=== PATIENT | female | born 1975 | race American Indian/Alaskan Native ===

== ENCOUNTER 2017-07-30 06:46 | Inpatient (IN) | payer OTHER ==
--- NOTE | 2017-07-30 07:13 | Cat Scan Report ---
FINAL REPORT EXAM: CT HEAD/BRAIN WO CON HISTORY: neuro deficits < 6hrs or sx present upon awakening TECHNIQUE: CT imaging acquired through the head without intravenous contrast. Transaxial reformations are provided. PRIORS: None. FINDINGS: The ventricles, cisterns and sulci are normal. No intraparenchymal or extra-axial mass, hemorrhage, or mass effect. [place]z and white-matter differentiation is normal. Normal spherical shape of the globes. Visualized portions of the paranasal sinuses and mastoid air cells are clear. No skull or facial fracture visualized. IMPRESSION: No acute intracranial abnormality. Findings were conveyed to Dr. Fish at 0607 central Time on 07/30/2017 immediately following the examination.
[2017-07-30 07:21] LABS: Basophils % (Auto) 0.2 % (0.0-1.8); Eosinophils % (Auto) 0.1 % (0.0-4.3); Hematocrit 40.5 % (30.3-42.9); Hemoglobin 13.6 gm/dl (10.1-14.3); Lymphocytes # (Auto) 1.2 K/mm3 (1.2-5.4); Lymphocytes % (Auto) 8.9 % (13.4-35.0); Mean Corpuscular HGB Conc 34 % (30-34); Mean Corpuscular Hemoglobin 33 pg (28-32); Mean Corpuscular Volume 98 fl (79-97); Monocytes # (Auto) 0.5 K/mm3 (0.0-0.8); Monocytes % (Auto) 3.7 % (0.0-7.3); Platelet Count 251 K/mm3 (140-440); Red Blood Count 4.13 M/mm3 (3.65-5.03); Red Cell Distribution Width 14.3 % (13.2-15.2)
[2017-07-30] MEDS ORDERED: ZOFRAN IV ONE (07:22)
[2017-07-30] MEDS ORDERED: NORMODYNE IV ONE (07:24)
[2017-07-30] MEDS ORDERED: SUBLIMAZE IV ONE (07:24)
[2017-07-30 07:26] LABS: INR 0.98 (0.87-1.13)
[2017-07-30] MEDS ORDERED: NACL ONE (07:26)
[2017-07-30 07:30] LABS: BUN/Creatinine Ratio 20; Blood Urea Nitrogen 10 mg/dL (7-17); Calcium 8.8 mg/dL (8.4-10.2); Hemolysis Index 7; Partial Thromboplastin Time 29.4 Sec. (24.2-36.6)
--- NOTE | 2017-07-30 07:31 | Emergency Department Report ---
ED Neuro Deficit HPI - General Chief Complaint: Neuro Symptoms/Deficit Stated Complaint: POSSIBLE STROKE Time Seen by Provider: 07/30/17 07:08 Source: patient, RN notes reviewed Mode of arrival: Wheelchair Limitations: Physical Limitation - History of Present Illness Initial Comments: This is a 42-year-old female who was previously unknown to this provider, denies chronic medical conditions. She is brought to the hospital as a possible code stroke. As per her , patient went to bed at 12:00 this evening, and "was fine." At 3:00 in the morning, patient developed epigastric discomfort, nausea and vomiting. Shortly thereafter, at 4:00 AM, aspirin the patient, patient developed slurred speech, right upper extremity weakness. She presented to the ER as a code stroke. Patient also complains of throbbing right-sided headache. -: Gradual Location: speech, right arm Presenting Symptoms: Present: Weak/Paralyzed One Side, Unable to Speak Clearly History of same: No Place: home Severity: moderate Quality: weak, numb, tingling Improves With: none Worsens With: none On Anticoagulants: No Context: gradual onset Associated Symptoms: headaches, loss of appetite, malise, nausea/vomiting, weakness. denies: confusion, chest pain, cough, diaphoresis, fever/chills, shortness of breath, syncope - Related Data Allergies/Adverse Reactions: Allergies Allergy/AdvReac Type Severity Reaction Status Date / Time No Known Allergies Allergy Unverified 07/30/17 06:51 ED Review of Systems ROS: Stated complaint: POSSIBLE STROKE Other details as noted in HPI ED Past Medical Hx - Past Medical History Previous Medical History?: Yes Hx Hypertension: Yes - Social History Smoking Status: Never Smoker ED Neuro Physical Exam - General Limitations: No Limitations General appearance: alert, in no apparent distress Suspected Stroke: Yes - Head Head exam: Present: atraumatic, normocephalic - Eye Eye exam: Present: normal appearance, PERRL, EOMI. Absent: nystagmus - ENT ENT exam: Present: mucous membranes moist - Neck Neck exam: Present: normal inspection, full ROM. Absent: tenderness, meningismus - Respiratory Respiratory exam: Present: normal lung sounds bilaterally. Absent: respiratory distress - Cardiovascular Cardiovascular Exam: Present: regular rate, normal rhythm, normal heart sounds. Absent: bradycardia, tachycardia, irregular rhythm, systolic murmur, diastolic murmur, rubs, gallop - GI/Abdominal GI/Abdominal exam: Present: soft, normal bowel sounds. Absent: distended, tenderness, guarding, rebound, rigid, pulsatile mass - Extremities Exam Extremities exam: Present: normal inspection, full ROM. Absent: pedal edema, joint swelling - Back Exam Back exam: Present: normal inspection, full ROM. Absent: paraspinal tenderness , vertebral tenderness - Neurological Exam Neurological exam: Present: alert, oriented X3, CN II-XII intact - NIHSS Assessment Interval: Baseline 1a. Level of Consciousness: alert 1b. LOC Questions: answers correctly 1c. LOC Commands: performs tasks correctly 2. Best Gaze: normal 3. Visual: no visual loss 4. Facial Palsy: normal symmetrical movement 5b. Motor Arm Right: some gravity effort 5a. Motor Arm Left: no drift 6a. Motor Leg Left: no drift 6b. Motor Leg Right: some gravity effort 7. Limb Ataxia: absent 8. Sensory: normal 9. Best Language: no aphasia 10. Dysarthria: normal 11. Extinction/Inattention: no abnormality Total Score: 4 Stroke Severity: Minor Stroke - Psychiatric Psychiatric exam: Present: anxious - Skin Skin exam: Present: warm, dry, intact, normal color. Absent: rash ED Course Vital Signs 07/30/17 07/30/17 06:51 08:26 Temperature 98.7 F Pulse Rate 88 Respiratory 16 Rate Blood Pressure 177/106 O2 Sat by Pulse 95 Oximetry - Lab Data Result diagrams: 07/30/17 07:08 07/30/17 07:08 Lab Results 07/30/17 07/30/17 07/30/17 Range/Units 06:54 07:08 07:08 WBC 13.2 H (4.5-11.0) K/mm3 RBC 4.13 (3.65-5.03) M/mm3 Hgb 13.6 (10.1-14.3) gm/dl Hct 40.5 (30.3-42.9) % MCV 98 H (79-97) fl MCH 33 H (28-32) pg MCHC 34 (30-34) % RDW 14.3 (13.2-15.2) % Plt Count 251 (140-440) K/mm3 Lymph % (Auto) 8.9 L (13.4-35.0) % [place] % (Auto) 3.7 (0.0-7.3) % Eos % (Auto) 0.1 (0.0-4.3) % Baso % (Auto) 0.2 (0.0-1.8) % Lymph # 1.2 (1.2-5.4) K/mm3 [place] # 0.5 (0.0-0.8) K/mm3 Eos # 0.0 (0.0-0.4) K/mm3 Baso # 0.0 (0.0-0.1) K/mm3 Seg Neutrophils % 87.1 H (40.0-70.0) % Seg Neutrophils # 11.5 H (1.8-7.7) K/mm3 PT 13.5 (12.2-14.9) Sec. INR 0.98 (0.87-1.13) APTT 29.4 (24.2-36.6) Sec. Thrombin Time (15.1-19.6) Sec. Sodium (137-145) mmol/L Potassium (3.6-5.0) mmol/L Chloride (98-107) mmol/L Carbon Dioxide (22-30) mmol/L Anion Gap mmol/L BUN (7-17) mg/dL Creatinine (0.7-1.2) mg/dL Estimated GFR ml/min BUN/Creatinine Ratio % Glucose (65-100) mg/dL POC Glucose 96 (70-105) Calcium (8.4-10.2) mg/dL Troponin T (0.00-0.029) ng/mL 07/30/17 07/30/17 Range/Units 07:08 07:08 WBC (4.5-11.0) K/mm3 RBC (3.65-5.03) M/mm3 Hgb (10.1-14.3) gm/dl Hct (30.3-42.9) % MCV (79-97) fl MCH (28-32) pg MCHC (30-34) % RDW (13.2-15.2) % Plt Count (140-440) K/mm3 Lymph % (Auto) (13.4-35.0) % [place] % (Auto) (0.0-7.3) % Eos % (Auto) (0.0-4.3) % Baso % (Auto) (0.0-1.8) % Lymph # (1.2-5.4) K/mm3 [place] # (0.0-0.8) K/mm3 Eos # (0.0-0.4) K/mm3 Baso # (0.0-0.1) K/mm3 Seg Neutrophils % (40.0-70.0) % Seg Neutrophils # (1.8-7.7) K/mm3 PT (12.2-14.9) Sec. INR (0.87-1.13) APTT (24.2-36.6) Sec. Thrombin Time 15.2 (15.1-19.6) Sec. Sodium 140 (137-145) mmol/L Potassium 4.0 (3.6-5.0) mmol/L Chloride 99.9 (98-107) mmol/L Carbon Dioxide 27 (22-30) mmol/L Anion Gap 17 mmol/L BUN 10 (7-17) mg/dL Creatinine 0.5 L (0.7-1.2) mg/dL Estimated GFR > 60 ml/min BUN/Creatinine Ratio 20 % Glucose 102 H (65-100) mg/dL POC Glucose (70-105) Calcium 8.8 (8.4-10.2) mg/dL Troponin T < 0.010 (0.00-0.029) ng/mL - EKG Data -: EKG Interpreted by Ms EKG shows normal: sinus rhythm Rate: normal When compared to previous EKG there are: previous EKG unavailable - Radiology Data Radiology results: report reviewed, image reviewed CT scan of the abdomen and pelvis negative for acute disease. CT scan of the brain negative for acute disease. CT scan of the head and neck, angiography, negative for acute disease. X-ray the chest is negative for acute disease - Medical Decision Making Differential diagnosis, including but not limited to: Stroke, transient ischemic attack, conversion disorder, seizure, dissection Assessment and plan: 42-year-old female who presented with abdominal pain, and complaint of right arm weakness that started at 4:00 in the morning. Initially he had an NIH score of 4, however symptoms rapidly improved. X-ray of the chest grossly unremarkable, equal pulses in the bilateral upper and lower extremities, noncontrast CT scan of the abdomen and pelvis negative for acute findings. Think aortic dissection unlikely for aforementioned reasons. CT angiogram of the head and neck negative for significant findings, there is specifically no thrombus or dissection noted, patient also interviewed by stroke neurologist, Dr. Audrey Young; given improvement in symptoms, we both agree that the patient is not a TPA candidate at this time, this was discussed extensively with the patient and her family, who verbalize understanding and agreement with this. Patient will be admitted to the hospital for evaluation for transient ischemic attack high risk symptoms, case presented to the Hospital physician, Dr. Low; he accepted the patient to the medical service. - Thrombolytic Inclusion/Exclusion Thrombolytic Contraindications: Rapidily Improving s/s Critical care attestation.: If time is entered above; I have spent that time in minutes in the direct care of this critically ill patient, excluding procedure time. ED Disposition Clinical Impression: TIA (transient ischemic attack), Abdominal pain Disposition: DC-09 OP ADMIT IP TO THIS HOSP Is pt being admited?: Yes Does the pt Need Aspirin: Yes Condition: Stable
[2017-07-30] MEDS ORDERED: NACL 0.9% IV ONE (07:40)
[2017-07-30] MEDS ORDERED: ACTIVASE IV ONE ×2 (07:40)
[2017-07-30] MEDS ORDERED: ACTIVASE ONE (07:43)
--- NOTE | 2017-07-30 08:17 | Cat Scan Report ---
FINAL REPORT EXAM: CT ABDOMEN PELVIS WO CON HISTORY: abd pain TECHNIQUE: CT images obtained through the Abdomen and Pelvis without contrast. Transaxial,coronal and sagittal reformats are provided. PRIORS: None. FINDINGS: Imaged intrathoracic contents are unremarkable. Kidneys are normal in size, axis and position. No hydronephrosis or nephrolithiasis. The ureters are normal in course and caliber. No stones are seen within the urinary bladder. Cholecystectomy. The liver, pancreas, spleen, and adrenal glands demonstrate a normal noncontrast appearance. Hollow enteric organs are normal in course and caliber. Appendix is normal. No intra-abdominal free air/fluid or lymphadenopathy. Aorta is normal in course and caliber. Prior hysterectomy. Multiple pelvic phleboliths. Superficial soft tissues are unremarkable. No acute or aggressive appearing skeletal findings. IMPRESSION: No CT evidence of obstructive urolithiasis or other acute abdominal or pelvic findings.
--- NOTE | 2017-07-30 08:31 | Cat Scan Report ---
FINAL REPORT EXAM: CT ANGIO HEAD HISTORY: cva TECHNIQUE: CT images are acquired through the head in angiographic phase following intravenous administration of contrast. Transaxial , coronal and sagittal reformations with maximal intensity projections are provided. PRIORS: Noncontrast head CT of the same date FINDINGS: The anterior and posterior communicating arteries are normal in caliber. Well opacified anterior and middle cerebral arteries. Branch vessels within the anterior and middle cerebral arterial distribution are well opacified and normal in caliber. Normal caliber basilar artery. Posterior cerebral arteries and their major branches are well opacified and normal in caliber. IMPRESSION: No intracranial significant stenosis/large vessel occlusion. The [place] is intact.
--- NOTE | 2017-07-30 08:35 | Cat Scan Report ---
FINAL REPORT EXAM: CT ANGIO NECK HISTORY: cva TECHNIQUE: CT images are acquired through the neck in angiographic phase following intravenous administration of contrast. Transaxial , coronal and sagittal reformations with maximal intensity projections are provided. PRIORS: CT head angiogram of the same date FINDINGS: Normal 3 vessel aortic arch. The right common and internal carotid arteries are well opacified and normal in course and caliber. The left common and internal carotid arteries are well opacified and normal in course and caliber. Normal caliber, well opacified basilar artery. Vertebral arteries are well opacified and normal in caliber. Posterior cerebral arteries and their major branches are well opacified and normal in caliber. IMPRESSION: No significant stenosis or intraluminal abnormality involving the carotid or vertebral arteries.
--- NOTE | 2017-07-30 09:03 | XRay Report ---
Single view chest: History: Hypertension. Abdominal pain. Findings: Cardiomegaly. Trachea is midline. No consolidation, pneumothorax or pleural effusion. Impression: Cardiomegaly. No acute lung changes.
[2017-07-30] MEDS ORDERED: NORCO 5/325 PO PRN (09:51)
[2017-07-30] MEDS ORDERED: DULCOLAX PR PRN (09:51)
[2017-07-30] MEDS ORDERED: MILK OF MAGNESIA PO PRN (09:51)
[2017-07-30] MEDS ORDERED: SODIUM CHLORIDE FLUSH SYRINGE 10 ML IV PRN (09:51)
[2017-07-30] MEDS ORDERED: ZOFRAN IV PRN (09:51)
[2017-07-30] MEDS ORDERED: REGLAN PO PRN (09:51)
[2017-07-30] MEDS ORDERED: PHENERGAN PR PRN (09:51)
[2017-07-30] MEDS ORDERED: TYLENOL PO PRN (09:51)
[2017-07-30] MEDS ORDERED: BABY ASPIRIN PO ONE (10:03)
[2017-07-30] MEDS: ASPIRIN PO SCH (11:41)
[2017-07-30] MEDS: LOVENOX SUB-Q SCH (11:41)
--- NOTE | 2017-07-30 11:42 | History and Physical Report ---
History of Present Illness Date of examination: 07/30/17 Date of admission: 07/30/17 09:51 Chief complaint: right sided numbness History of present illness: 42-year-old -Armenian female with past medical history significant for hypertension, TIA presented to the emergency department complaining of right- sided arm, face, leg numbness and weakness that persisted for 2-3 hours. Patient had nausea and vomiting headache that started around 3AM and after an hour she started to have the numbness and the weakness. Patient denied chest pain, seizure. Patient had TIA 5 years ago and no work up was done. Patient has hypertension and taking her medications. REVIEW OF SYSTEMS: GENERAL: no weight change, no fatigue, no fever HEAD: no head ache EYES: no blurry vision, no acute visual loss EARS: no hearing loss, no discharge, no earache NOSE: no stuffiness, no sneezing, no discharge MOUTH, THROAT AND NECK: no bleeding gums, no sore throat, no swollen neck CARDIAC: no palpitations, no dyspnea on exertion, no orthopnea, no PND, no edema , no chest pain RESPIRATORY: no shortness of breath, no wheeze, no cough, no sputum, no hemoptysis, no asthma GI: no decreased appetite, no nausea, no vomiting, no dysphagia, no diarrhea, no constipation, no abdominal pain URINARY: no change in frequency, no urgency, no polyuria, no hematuria, no incontinence MUSCULOSKELETAL: no muscle weakness, no pain, no joint stiffness NEUROLOGIC: no loss of sensation/numbness, no tingling, no tremors. HEMATOLOGIC: no anemia, no easy bruising SKIN: no rashes ENDOCRINE: no heat/cold intolerance, no polyuria, no polydipsia, no thyroid problems, no diabetes PSYCHIATRIC: no anxiety, no depression, no suicidal ideations Past History Past Medical History: hypertension Past Surgical History: No surgical history Social history: full code. denies: smoking, alcohol abuse, prescription drug abuse, IV drug use Family history: no significant family history Medications and Allergies Allergies Allergy/AdvReac Type Severity Reaction Status Date / Time No Known Allergies Allergy Unverified 07/30/17 06:51 Active Meds: Active Medications Acetaminophen (Tylenol) 650 mg PO Q4H PRN PRN Reason: Pain, Mild (1-3) Acetaminophen/Hydrocodone Bitart ([place] 5/325) 2 each PO Q6H PRN PRN Reason: Pain, Moderate (4-6) Aspirin (Aspirin) 325 mg PO QDAY CINDY Atorvastatin Calcium (Lipitor) 40 mg PO QHS CINDY Bisacodyl (Dulcolax) 10 mg HI QDAY PRN PRN Reason: Constipation Enoxaparin Sodium (Lovenox) 40 mg SUB-Q QDAY CINDY Magnesium Hydroxide (Milk Of Magnesia) 30 ml PO Q4H PRN PRN Reason: Constipation Metoclopramide HCl (Reglan) 10 mg PO Q6H PRN PRN Reason: Nausea And Vomiting Ondansetron HCl (Zofran) 4 mg IV Q8H PRN PRN Reason: N/V unrelieved by Reglan Promethazine HCl (Phenergan) 25 mg HI Q6H PRN PRN Reason: Nausea And Vomiting Sodium Chloride (Sodium Chloride Flush Syringe 10 Ml) 10 ml IV PRN PRN PRN Reason: LINE FLUSH Exam - Physical Exam Narrative exam: Not in cardiopulmonary distress. The patient is obese. Vital signs as documented. Head exam is unremarkable. No scleral icterus . Neck is without jugular venous distension, thyromegaly, or carotid bruits. Lungs are clear to auscultation. Cardiac exam reveals regular rate and Rhythm. First and second heart sounds normal. No murmurs, rubs or gallops. Abdominal exam reveals normal bowel sounds, no masses, no organomegaly and no aortic enlargement. Extremities are nonedematous and both femoral and pedal pulses are normal. 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 No focal weakness. - Constitutional Vitals: Temp Pulse Resp BP Pulse Ox 98.7 F 83 16 130/71 98 07/30/17 06:51 07/30/17 10:00 07/30/17 10:00 07/30/17 10:00 07/30/17 10:00 Results - Labs CBC & Chem 7: 07/30/17 07:08 07/30/17 07:08 Labs: Laboratory Last Values WBC 13.2 K/mm3 (4.5-11.0) H 07/30/17 07:08 RBC 4.13 M/mm3 (3.65-5.03) 07/30/17 07:08 Hgb 13.6 gm/dl (10.1-14.3) 07/30/17 07:08 Hct 40.5 % (30.3-42.9) 07/30/17 07:08 MCV 98 fl (79-97) H 07/30/17 07:08 MCH 33 pg (28-32) H 07/30/17 07:08 MCHC 34 % (30-34) 07/30/17 07:08 RDW 14.3 % (13.2-15.2) 07/30/17 07:08 Plt Count 251 K/mm3 (140-440) 07/30/17 07:08 Lymph % (Auto) 8.9 % (13.4-35.0) L 07/30/17 07:08 [place] % (Auto) 3.7 % (0.0-7.3) 07/30/17 07:08 Eos % (Auto) 0.1 % (0.0-4.3) 07/30/17 07:08 Baso % (Auto) 0.2 % (0.0-1.8) 07/30/17 07:08 Lymph # 1.2 K/mm3 (1.2-5.4) 07/30/17 07:08 [place] # 0.5 K/mm3 (0.0-0.8) 07/30/17 07:08 Eos # 0.0 K/mm3 (0.0-0.4) 07/30/17 07:08 Baso # 0.0 K/mm3 (0.0-0.1) 07/30/17 07:08 Seg Neutrophils % 87.1 % (40.0-70.0) H 07/30/17 07:08 Seg Neutrophils # 11.5 K/mm3 (1.8-7.7) H 07/30/17 07:08 PT 13.5 Sec. (12.2-14.9) 07/30/17 07:08 INR 0.98 (0.87-1.13) 07/30/17 07:08 APTT 29.4 Sec. (24.2-36.6) 07/30/17 07:08 Thrombin Time 15.2 Sec. (15.1-19.6) 07/30/17 07:08 Sodium 140 mmol/L (137-145) 07/30/17 07:08 Potassium 4.0 mmol/L (3.6-5.0) 07/30/17 07:08 Chloride 99.9 mmol/L (98-107) 07/30/17 07:08 Carbon Dioxide 27 mmol/L (22-30) 07/30/17 07:08 Anion Gap 17 mmol/L 07/30/17 07:08 BUN 10 mg/dL (7-17) 07/30/17 07:08 Creatinine 0.5 mg/dL (0.7-1.2) L 07/30/17 07:08 Estimated GFR > 60 ml/min 07/30/17 07:08 BUN/Creatinine Ratio 20 % 07/30/17 07:08 Glucose 102 mg/dL (65-100) H 07/30/17 07:08 POC Glucose 96 (70-105) 07/30/17 06:54 Calcium 8.8 mg/dL (8.4-10.2) 07/30/17 07:08 Troponin T < 0.010 ng/mL (0.00-0.029) 07/30/17 07:08 - Imaging and Cardiology EKG: image reviewed (NSR) CT Scan - head: report reviewed (No ischemia or hemorrhage) Assessment and Plan Assessment and plan: TIA - CT head is negative - MRI, MRA, ECHO, carotid doppler, lipid panels - Aspirin, statin Hypertension - Will resume medications DVT prophylaxis - Lovenox Disposition - Admit to telemetry floor Advance Directives: Yes VTE prophylaxis?: Chemical Plan of care discussed with patient/family: Yes
--- NOTE | 2017-07-30 16:08 | Magnetic Resonance Report ---
FINAL REPORT PROCEDURE: MR BRAIN WO CON TECHNIQUE: Magnetic resonance imaging of the brain was performed without contrast material. HISTORY: Right-sided numbness. COMPARISON: CT scan of the brain 07/30/2017 FINDINGS: There is no evidence of intracranial hemorrhage. No parenchymal hemorrhage, mass lesions or mass effect are identified. The ventricles are normal size and are midline. No abnormal extra-axial fluid collections or masses are identified. There is no abnormal restricted diffusion that would suggest an acute ischemic event. There is minimal increased T2 signal in the periventricular and deep white matter suggesting a small amount of nonspecific gliosis. The corpus callosum, region of the pituitary fossa and foramen magnum show no abnormalities. Paranasal sinuses and the mastoid air cells are clear. IMPRESSION: There is no evidence of acute ischemic infarction. Minimal gliosis as described. Exam otherwise appears normal.
--- NOTE | 2017-07-30 16:13 | Magnetic Resonance Report ---
FINAL REPORT PROCEDURE: MRA of the brain TECHNIQUE: Axial 3-D [id number] MR angiography of the [place] and brain was performed. The source images were reconstructed in various views using maximum intensity projection. HISTORY: stroke COMPARISON: No prior studies are available for comparison. FINDINGS: Visualized portions of the internal carotid arteries appear widely patent. Carotid siphons are widely patent. The A1 segments, anterior cerebral arteries and middle cerebral arteries appear widely patent. No high-grade stenosis visualized. No evidence of occlusion. No evidence of aneurysm or vascular malformation. Posterior circulation is intact. The vertebral arteries basilar artery and posterior cerebral arteries are patent. There is persistent circulation of the right posterior cerebral artery, normal variant. No high-grade stenosis, occlusion, aneurysm or vascular malformation identified. IMPRESSION: Anterior and posterior circulation appear intact. There is persistent circulation of the right posterior cerebral artery, normal variant.
[2017-07-31 05:25] LABS: BUN/Creatinine Ratio 13; Blood Urea Nitrogen 9 mg/dL (7-17); Calcium 8.5 mg/dL (8.4-10.2); Chol/HDL Ratio 2.51 %; HDL Cholesterol 54 mg/dL (40-59); Hemolysis Index 25; LDL Cholesterol,Direct 69 mg/dL (50-130)
[2017-07-31 08:58] VITALS: BP 154/86
[2017-07-31] MEDS ORDERED: MOTRIN PO PRN (09:40)
[2017-07-31] MEDS ORDERED: NORVASC PO SCH (10:00)
[2017-07-31] MEDS: ASPIRIN PO SCH (10:33)
[2017-07-31] MEDS: LOVENOX SUB-Q SCH (10:33)
--- NOTE | 2017-07-31 12:54 | Discharge Summary ---
Providers - Providers Date of Admission: 07/30/17 09:51 Date of discharge: 07/31/17 Attending physician: CHERISE MONTES MD 07/30/17 09:51 Consult to Case Management [CONS] Routine Services Needed at Discharge: Physical Therapy Notified:: human services case manager Consult to Dietitian/Nutrition [CONS] Routine Physician Instructions: Reason For Exam: Reason for Consult: Nutrition Recommendations Reason for Consult: Diet education Occupational Therapy Evaluate and Treat [CONS] Routine Comment: Reason For Exam: Neuro deficits Physical Therapy Evaluation and Treat [CONS] Routine Comment: Reason For Exam: Neuro deficits Primary care physician: LEGAL MANAGER Hospitalization Reason for admission: TIA, hypertension Condition: Stable Pertinent studies: CT, MRI/MRA head negative Bilateral carotid Doppler less than 50% stenoses Hospital course: 42-year-old -Malag[place] female with past medical history significant for hypertension, TIA presented to the emergency department complaining of right- sided arm, face, leg numbness and weakness that persisted for 2-3 hours. Patient had nausea and vomiting headache that started around 3AM and after an hour she started to have the numbness and the weakness. Patient denied chest pain, seizure. Patient had TIA 5 years ago and no work up was done. Patient has hypertension and taking her medications. Patient was worked up for stroke and also test were negative. Blood pressure was controlled. LDL is less than 70. Patient discharged with amlodipine and aspirin. Patient's advised to follow-up with primary care physician within one week. Patient's questions and concerns were addressed at the bedside. Patient was hemodynamically stable at the time of discharge. Patient didn't have any neurologic deficit as a time of discharge. Disposition: TO HOME OR SELFCARE Time spent for discharge: 31 minutes - Discharge Diagnoses (1) Abdominal pain Status: Acute (2) TIA (transient ischemic attack) Status: Acute Core Measure Documentation - Palliative Care Palliative Care/ Comfort Measures: Not Applicable - Core Measures Any of the following diagnoses?: none Exam - Physical Exam Narrative exam: Not in cardiopulmonary distress. The patient is obese. Vital signs as documented. Head exam is unremarkable. No scleral icterus . Neck is without jugular venous distension, thyromegaly, or carotid bruits. Lungs are clear to auscultation. Cardiac exam reveals regular rate and Rhythm. First and second heart sounds normal. No murmurs, rubs or gallops. Abdominal exam reveals normal bowel sounds, no masses, no organomegaly and no aortic enlargement. Extremities are nonedematous and both femoral and pedal pulses are normal. 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 No focal weakness. - Constitutional Vitals: Temp Pulse Resp BP Pulse Ox 98.7 F 72 20 154/86 97 07/31/17 08:41 07/31/17 08:41 07/31/17 08:41 07/31/17 08:41 07/31/17 10:00 Plan Activity: no restrictions Weight Bearing Status: Full Weight Bearing Diet: low cholesterol, low salt Additional Instructions: please follow @[facility] in 1-2 weeks Follow up with: PRIMARY CAREMD [Primary Care Provider] - 7 Days Prescriptions: amLODIPine [Norvasc] 10 mg PO DAILY #30 tablet Aspirin [Adult Low Dose Aspirin EC] 81 mg PO DAILY #30 tablet.
--- NOTE | 2017-08-04 17:49 | Vascular Lab Report ---
CAROTID DUPLEX STUDY: RIGHT PSVEDV CCA [id number] CCA DIST:[id number] ICA PROX:4716 ICA MID:9639 ICA DIST:9038 ECA: 83 VERT: 48 16 LEFT PSVEDV CCA PROX:[id number] CCA DIST:9323 ICA PROX:8017 ICA MID:9738 ICA DIST:9136 ECA: 77 VERT: 52 18 REASON FOR EXAM: Stroke. COMMENTS ON THE RIGHT: Doppler frequency analysis is consistent with 16 to 49 percent diameter reduction of the internal carotid artery. Minimal amount of plaque is seen. The common carotid artery is patent. The external carotid artery is patent. The vertebral artery has antegrade flow. COMMENTS ON THE LEFT: Doppler frequency analysis is consistent with 16 to 49 percent diameter reduction of the internal carotid artery. Minimal amount of plaque is seen. The common carotid artery is patent. The external carotid artery is patent. The vertebral artery has antegrade flow. IMPRESSION: Less than 50% diameter reduction in the internal carotid arteries bilaterally.
== END 2017-07-31 15:25 | disposition home or self-care (01) | DRG 69 ==
LOC: ED 06:46 → 4A 09:51
PROVIDERS: ADMIT Internal Medicine; ATTEND Internal Medicine
DX: G45.9 Transient cerebral ischemic attack, unspecified (principal); I10 Essential (primary) hypertension; R10.9 Unspecified abdominal pain
CPT/HCPCS: 36415; 70450; 70496; 70498; 70544; 70551; 71010; 74176; 80048; 80061; 82962; 84484; 85025; 85610; 85670; 85730; 93005; 93010; 93880; 96374; 96375; A9270-GY; J1650; J2405; J2997; J3010; Q9967